=== PATIENT | male | born 1935 | race Caucasian/White ===

== ENCOUNTER 2023-11-19 11:09 | Outpatient (OUT) | payer MEDICARE, SELFPAY ==
--- NOTE | 2023-11-19 11:17 | XR_ITS ---
The [address] [address] Patient Name: SARA MICHAEL MRN: [id number] date: 1935 Sex: M Assigned Patient Location: [facility] Current Patient Location: Accession/Order Number: [id number] Exam Date: 11/19/2023 11:24 Report Date: 11/20/2023 07:00 At the request of: HERNESTO AGUIAR Procedure: XR abdomen 1V EXAMINATION: XR abdomen 1V HISTORY: Kidney stone N20.0 COMPARISON: XR KUB 11/06/2022 FINDINGS: KIDNEY/URETER - RIGHT: Contains a large 14 mm stone versus adjacent overlapping stones. KIDNEY/URETER - LEFT: Contains 2 large stones, largest is 11 mm. PELVIS: No appreciable ureteral stones. Stable pelvic calcifications favor phleboliths. Numerous calcifications within prostate. BOWEL: No abnormal dilation or deviation. BONES: No acute abnormality. OTHER: Negative. No abnormal gaseous collections. XR/XR abdomen 1V IMPRESSION: 1. Stable bilateral nephrolithiasis. No appreciable change. Electronically authenticated by: EBONI MCFARLAND Date: 11/20/2023 07:00
== END 2023-11-19 11:10 | disposition home or self-care (01) ==
LOC: RAD 11:10
PROVIDERS: PCP Internal Medicine; Visit Provider Urology
DX: N20.0 Calculus of kidney (principal)
CPT/HCPCS: 74018